=== PATIENT | female | born 1975 | race African-American/Black ===

== ENCOUNTER 2019-03-30 08:55 | Inpatient (IN) ==
[2019-03-30] MEDS ORDERED: CATAPRES PO ONE ×2 (09:11→10:24)
--- NOTE | 2019-03-30 09:17 | PROVIDER DOCUMENTATION ---
HPI-Neurological Disorder - General Chief Complaint: B/P Problems Stated Complaint: HAND NUMBNESS Time Seen by Provider: 03/30/19 09:06 Source: patient Allergies/Adverse Reactions: Patient Allergies Allergy/AdvReac Type Severity Reaction Status Date / Time acetaminophen [From Tylenol] Allergy RASH Verified 03/30/19 09:30 Home Medications: Home Medication List Medication Instructions Recorded Confirmed Last Taken Type Amlodipine [Norvasc] 5 mg PO DAILY #30 tab 02/05/18 03/30/19 Unknown Rx Losartan [Cozaar] 25 mg PO DAILY 03/30/19 03/30/19 Unknown History - History of Present Illness-Neuro Nature of Presenting Problem: 43 YOF WITH PMH OF HTN, CVA PRESENTS WITH 3 DAYS OF L HAND NUMBNESS. SHE REPORTS NO RESIDUAL FROM PREVIOUS CVA AND THAT SYMPTOMS BEGAN ABRUPTLY 3 DAYS AGO. SHE IS HYPERTENSIVE ON ARRIVAL, REPORTS SHE TAKES BP MEDICATIONS ORDERED. REPORTS HEADACHE 3 DAYS AGO BUT NONE CURRENTLY. REPORTS SHE WAS UNABLE TO DO HER JOB TODAY BECAUSE SHE IS LEFT HANDED AND THAT PROMPTED HER TO COME TO ER. SHE DENIES CP, SOB, N/V/D, FEVER, CHILLS. HER SPEECH IS SLURRED BUT SHE REPORTS THIS IS NORMAL SPEECH FOR HER Headache Location: denies: frontal, temporal, occipital, parietal, global, other Severity: reports: moderate Onset/Duration: reports: 3 days ago Timing: reports: still present Context: reports: paresthesia (L HAND NUMBNESS) Character of Altered Mental Status: reports: N/A Any recent trauma/injury?: reports: none Character of Deficits: reports: altered sensation (L HAND NUMBNESS) New weakness or altered sensation location:: reports: LUE Cognitive Baseline: alert, oriented x3 Gait Baseline: walks without assistance Associated Symptoms: reports: paresthesia (L HAND NUMBNESS) Similar Symptoms Previously?: Yes Recently seen or treated by another doctor?: No Review of Systems - Adult - REVIEW OF SYSTEMS - ADULT Constitutional: reports: no symptoms reported. denies: see HPI, chills, fever, fatique, night sweats, weight gain, weight loss, other Eyes: reports: no symptoms reported. denies: see HPI, discharge, dry eyes, decreased vision, blurred vision, double vision, eye pain, redness, other Ears, Nose, Mouth & Throat: reports: no symptoms reported. denies: see HPI, ear discharge, ear pain, hearing loss, tinnitus, epistaxis, sinus problem, nose pain, loose teeth, mouth/dental pain, mouth swelling, hoarseness, throat pain, throat swelling, other Cardiovascular: reports: no symptoms reported. denies: see HPI, chest pain, edema, heart murmur, irregular heart rate, orthopnea, palpitations, poor circulation, PND, syncope, other Respiratory: reports: no symptoms reported. denies: see HPI, chronic cough, cough, dyspnea on exertion, excessive sputum production, hemoptysis, pleurisy, shortness of breath, wheezing, other Gastrointestinal: reports: no symptoms reported. denies: see HPI, abdominal pain, hematemesis, constipation, diarrhea, difficulty swallowing, frequent heartburn, nausea, poor appetite, rectal bleeding, vomiting, other Genitourinary: reports: no symptoms reported. denies: see HPI, dysuria, discharge, frequency, flank pain, frequent UTI's, hematuria, hesitency, incontinence, urinary retention, urgency, other Musculoskeletal: reports: no symptoms reported. denies: see HPI, bone pain, back pain, frequent leg cramps, joint pain, joint swelling, muscle aches, muscle weakness, neck pain, other Integumentary: reports: no symptoms reported. denies: see HPI, hives, hair loss, itching, mole changes, nail changes, rash, skin sores/ulcer, skin thickening, other Neurological: reports: see HPI, numbness (L HAND). denies: no symptoms reported, ataxia, dizziness/vertigo, headache/migraines, loss of balance, pare sthesia, seizure, slurred speech, syncope, tremors, other Psychiatric: reports: no symptoms reported. denies: see HPI, anxiety, anti- depressant use, alcohol/drug dependence, depression, emotional problems, insomnia, panic attacks, suicidal thoughts, other Endocrine: reports: no symptoms reported. denies: see HPI, change in skin pigment, excessive sweating, goiter, cold intolerance, heat intolerance, increased hunger, increased thirst, polyuria, other Hematologic/Lymphatic: reports: no symptoms reported. denies: see HPI, blood clots, easy bruising, low blood count, lymphedema, prolonged bleeding, swollen lymph nodes, transfusions, other Allergic/Immunologic: reports: no symptoms reported. denies: see HPI, allergic reactions, allergic rhinitis, asthma, eczema, food allergy, frequent infections, hay fever, hives, positive PPD, urticaria, other Past History - Adult - PAST MEDICAL HISTORY-ADULT Review of Records: reports: Nursing Assessment Review, Social history reviewed & non-contributory. Major Childhood Illnesses: reports: denies history Cardiovascular: reports: HTN Respiratory: reports: denies history Gastrointestinal: reports: denies history Obstetrical/Gynecological: reports: denies history Genitourinary: reports: denies history Musculoskeletal: reports: denies history Neurological: reports: CVA Endocrine/Immune: reports: denies history Other Conditions: reports: denies history - PRIOR SURGERIES/PROCEDURES Surgical/Procedure History: reports: reviewed, not pertinent - IMMUNIZATION STATUS Childhood Immunizations: See Nurse Assessment Flu Vaccine: See Nurse Assessment - FAMILY HISTORY Family History: reviewed, not pertinent Physical Exam- Neurological - Physical Exam-Neuro Initial Vital Signs Reviewed: Yes General Appearance: appears well, alert, no apparent distress Eye Exam: bilateral eye: normal inspection, PERRL, EOMI HENMT: normocephalic/atraumatic, moist mucous membranes, normal ENT inspection Head Injury: no evidence of injury Neck: non-tender, full range of motion, supple Respiratory: chest non-tender, lungs clear, normal breath sounds, no pleuratic chest pain, no respiratory distress, no accessory muscle use Cardiovascular: normal peripheral pulses, regular rate, rhythm, no edema, no gallop, no JVD, no murmur Abdominal Exam: normal bowel sounds, non tender, soft, no organomegaly, no pulsatile mass Lymphatic: no adenopathy Peripheral Pulses: radial (R): 2+, radial (L): 2+ Extremity: normal range of motion, non-tender, 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 negative: facial asymmetry, facial droop, facial paresthesias, facial weakness, hearing deficit (R), hearing deficit (L), tongue deviation to R, tongue deviation to L Coordination/Gait: normal finger to nose, normal gait Motor/Sensory: negative: pronator drift (R), pronator drift (L), weak motor strength RUE, weak motor strength LUE, weak motor strength RLE, weak motor strength LLE Neurologic: no motor/sensory deficits. negative: aphasia, focal weakness, motor weakness Integumentary: normal color, normal turgor, warm/dry Psych/Mental Status: normal mood/affect, oriented x 3 - Glascow Coma Scale Best Eye Response: (4) open spontaneously Best Verbal Response: (5) oriented Best Motor Response: (6) obeys commands Progress - PLAN OF CARE/RESULTS Progress/Plan/Lab Results: Vital Signs - 8 hr 03/30/19 08:57 03/30/19 10:20 Temperature 98 F 98 F Pulse Rate 78 66 Respiratory Rate 18 20 Blood Pressure 190/126 169/112 O2 Sat by Pulse Oximetry 98 99 Bedside Urine ED: Urine Bedside Start: 03/30/19 09:11 Freq: ORDERED Status: Active Protocol: Activity Type Activity Date Activity User E-Sign Co-Sign Detail Recorded Client Recorded Date Recorded By Document 03/30/19 09:50 [id number] 03/30/19 09:50 [id number] 03/30/19 09:50 Point of Care [Bedside Point of Care] -Lot # [id number] - Results Negative -Control Line Visible? Yes Laboratory Results - last 24 hr 03/30/19 03/30/19 03/30/19 09:25 09:25 09:25 WBC 7.44 RBC 4.91 Hgb 10.4 L Hct 31.8 L MCV 64.8 L MCH 21.2 L MCHC 32.7 L RDW Std Deviation 17.9 H Plt Count 500 H MPV 11.0 H Immature Gran % (Auto) 0.3 Neut % (Auto) 66.2 Lymph % (Auto) 23.1 [place] % (Auto) 9.0 Eos % (Auto) 1.1 Baso % (Auto) 0.3 Immature Gran # (Auto) 0.02 Neut # (Auto) 4.93 Lymph # (Auto) 1.72 [place] # (Auto) 0.67 H Eos # (Auto) 0.08 Baso # (Auto) 0.02 PT 12.5 INR 0.89 PTT (Actin FS) 30.5 Sodium 140 Potassium 4.1 Chloride 104 Carbon Dioxide 24 L Anion Gap 12 BUN 17 Creatinine 1.2 H Estimated GFR/1.73 m2 49 BUN/Creatinine Ratio 14 Glucose 91 Calculated Osmolality 281 Calcium 9.6 Total Bilirubin 1.00 AST 18 ALT 13 Alkaline Phosphatase 92 Troponin T Total Protein 7.7 Albumin 4.3 Globulin 3.0 Albumin/Globulin Ratio 1.0 Urine Source Urine Color Urine Clarity Urine pH Ur Specific [place] Urine Protein Urine Ketones Urine Blood Urine Nitrite Urine Bilirubin Urine Urobilinogen Urine Microscopic RBC Urine WBC Urine Microscopic WBC Ur Epithelial Cells Urine Crystals Urine Bacteria Urine Casts Urine Yeast Urine Glucose Urine Opiates Screen Ur Oxycodone Screen Urine Methadone Screen U Propoxyphene Qual Ur Barbituates Screen Ur Tricyclics Screen Ur Phencyclidine Scrn Ur Amphetamines Screen U Methamphetamines Scrn U Benzodiazepines Scrn Urine Cocaine Screen U Cannabinoids Screen 03/30/19 03/30/19 03/30/19 09:26 09:43 09:43 WBC RBC Hgb Hct MCV MCH MCHC RDW Std Deviation Plt Count MPV Immature Gran % (Auto) Neut % (Auto) Lymph % (Auto) [place] % (Auto) Eos % (Auto) Baso % (Auto) Immature Gran # (Auto) Neut # (Auto) Lymph # (Auto) [place] # (Auto) Eos # (Auto) Baso # (Auto) PT INR PTT (Actin FS) Sodium Potassium Chloride Carbon Dioxide Anion Gap BUN Creatinine Estimated GFR/1.73 m2 BUN/Creatinine Ratio Glucose Calculated Osmolality Calcium Total Bilirubin AST ALT Alkaline Phosphatase Troponin T < 0.010 Total Protein Albumin Globulin Albumin/Globulin Ratio Urine Source CLEAN CATCH Urine Color YELLOW Urine Clarity SL. CLOUDY A Urine pH 5.0 Ur Specific [place] 1.025 Urine Protein 3+(500 mg/dL) A Urine Ketones TRACE Urine Blood 2+ A Urine Nitrite NEGATIVE Urine Bilirubin NEGATIVE Urine Urobilinogen 4 Urine Microscopic RBC 10-20 A Urine WBC TRACE A Urine Microscopic WBC 10-20 A Ur Epithelial Cells >10 A Urine Crystals CA OXALATE PRESENT Urine Bacteria 3+ Urine Casts NONE SEEN Urine Yeast NONE SEEN Urine Glucose NEGATIVE Urine Opiates Screen NONE DETECTED Ur Oxycodone Screen NONE DETECTED Urine Methadone Screen NONE DETECTED U Propoxyphene Qual NONE DETECTED Ur Barbituates Screen NONE DETECTED Ur Tricyclics Screen NONE DETECTED Ur Phencyclidine Scrn NONE DETECTED Ur Amphetamines Screen NONE DETECTED U Methamphetamines Scrn NONE DETECTED U Benzodiazepines Scrn NONE DETECTED Urine Cocaine Screen NONE DETECTED U Cannabinoids Screen NONE DETECTED Orders Category Date Time Status ED: Urine Bedside ORDERED Care 03/30/19 09:11 Active FSBS [Finger Stick Blood Sugar (ED)] DIRECTED Care 03/30/19 09:[address] HEAD/C-SPINE W/O CONTRAST [CT] Stat Exams 03/30/19 09:10 Completed CBC WITH ELECTRONIC DIFF [HEME] Stat Lab 03/30/19 09:25 Completed COMPREHENSIVE METABOLIC PANEL [CHEM] Stat Lab 03/30/19 09:25 Completed PROTIME WITH INR [COAG] Stat Lab 03/30/19 09:25 Completed PTT [COAG] Stat Lab 03/30/19 09:25 Completed TROPONIN T Stat Lab 03/30/19 09:26 Completed URINE CULTURE [RM] Routine Lab 03/30/19 10:19 [address]UG SCREEN [address] Stat Lab 03/30/19 09:43 Completed ua [URINALYSIS PL W/POSS RFLX CULT] [URINALYSIS] Stat Lab 03/30/19 09:43 Completed Clonidine [Catapres] Med 03/30/19 09:11 Discontinued 0.1 mg PO NOW ONE Clonidine [Catapres] Med 03/30/19 10:24 Discontinued 0.1 mg PO NOW ONE EKG [EKG] Stat Ther 03/30/19 09:11 Draft Result Diagrams: 03/30/19 09:25 03/30/19 09:25 - EKG 1 Time of EKG reading by physician:: 09:39 EKG Read and Signed by:: Shobha Dunne EKG Interpretation (*Must complete 3 of following elements*): Abnormal Rate: 63 Rhythm: SR WITH OCC PVC [place]: normal QRS: LVH TX Interval: normal ST Wave: non-specific ST changes Prior EKG Comparison: changes noted (PVC) - CT/MRI 1 CT Study: Cervical Spine, Head Impression: See EMR Report (EXAM : CT HEAD/C-SPINE W/O CONTRAST HISTORY: L HAND NUMBNESS, HX OF CVA TECHNIQUE: 1. CT head without contrast 2. CT cervical spine without contrast COMPARISON: Head compared to 05/16/2018 FINDINGS: Head: No parenchymal hemorrhage. No epidural or subdural hematoma. No subarachnoid hemorrhage. Small old infarct in the right basal ganglia on the current exam which was not previously present. Old right frontoparietal infarct which was not previously present. Small cyst or focal atrophy anteriorly in the right temporal lobe. This is unchanged. No hydrocephalus. No skull fracture. Cervical spine: Mild reversal of the normal curvature. No precervical soft tissue swelling. No subluxation. No fracture. 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 This is a normal variant. IMPRESSION: Head: No hemorrhage. No injury. Cervical spine: No acute fracture. This exam was performed using automated exposure control, adjustment of mA or kV according to patient size, and/or use of iterative reconstruction technique. Electronically signed by Rodger Bates 03/30/2019 10:13 AM 03/30/19 1013 Interpreting Physician: Rodger Bates MD Dictated Date/Time: 03/30/19 1007 cc: Perla Hardy; Perri Rodriguez) Comparison with other Films: changes noted - CONSULTS/PCP/HOSPITALIST Notification #1 *Consult/PCP/Hospitalist*: DR DAMICO Time Discussed: 10:46 Consult Disposition: Admit Departure - Departure Date of Disposition Decision: 03/30/19 Time of Disposition Decision: 10:46 DIAGNOSIS: Numbness of left hand, CVA (cerebral vascular accident) Disposition: HOME 01 Certified Medical Emergency: Emergent Condition: Stable Referrals and Follow-Ups: Perri Rodriguez [Primary Care Provider] - - Critical Care Note This patient required my direct & personal management of CC.: No Attestation - Physician/ DAVIDSON Attestation Patient care was provided by Advanced Practice Provider:: Yes Advanced Practice Provider:: Perla Hardy Advanced Practice Provider documentation review:: The Mid-level provider documentation, treatment plan and medical decision making was reviewed by the physician who agrees with all treatment and medical decision making by the P. The physician spent face to face time with patient:: No Advanced Practice Provider documentation review:: Supervising physician onsite and consulted in the evaluation and care of this patient. The physician did not have a face to face encounter with the patient. - NIH Stroke Scale NIH Type: Initial Evaluation Level of Consciousness: 0-Alert LOC Questions (ask month and age): 0-Answers Both Correctly LOC Commands (ask to open & close eyes;make a fist, let go): 0-Obeys Both Correctly Best Gaze (horizontal eye movement): 0-Normal Visual (use finger movement, counting or visual threat): 0-No Visual Loss Facial Palsy (show teeth or raise eyebrows & close eyes tght: 0-Symmetrical Movement Motor Function-left arm: 1-Drift Motor Function-right arm: 0-Normal Motor Function-left le-Normal Motor Function-right le-Normal Limb Ataxia(ajsenl-biqb-fqkbks, or heel to horta): 0-No Ataxia Sensory(pin prick to face,arms,trunk,legs-compare side/side): 0-No Ataxia Best Language(name item/read sentence.Ex-Down to Earth): 0-No Aphasia Dysarthria(Pt read words or say words Ex.Mama,Tip-Top,Thanks: 0-Normal Articulation Extinction and Inattention: 0-Normal NIH Total Score: 1 Stroke tPA Guidelines - Inclusion Criteria for IV tPA 18 years old or older: Yes Ischemic stroke with measurable deficit: No Onset <3 hours ago *OR* 3-4.5 hours ago: No
[2019-03-30 09:53] LABS: BASO# 0.02 X1000 (0.0-0.2); BASO% 0.3 % (0.0-0.8); EOS# 0.08 X1000 (0.0-0.7); EOS% 1.1 % (0.0-10.0); HEMATOCRIT 31.8 % (37.0-47.0); HEMOGLOBIN 10.4 g/dL (12.0-16.0); IMM GRAN# 0.02 X1000 (0.0-0.04); IMM GRAN% 0.3 % (0.0-0.5); LYMPH# 1.72 X1000 (1.2-3.4); LYMPH% 23.1 % (20.5-51.1); MCH 21.2 PG (27-31); MCHC 32.7 g/dL (33-37); MCV 64.8 FL (81-99); MONO# 0.67 X1000 (0.11-0.59); NEUT# 4.93 X1000 (1.4-6.5); NEUT% 66.2 % (42.2-75.2); PLT 500 X1000 (130-400); RBC 4.91 XMIL (4.2-5.4); RDW 17.9 % (11.5-14.5); WBC 7.44 X1000 (4.8-10.8)
[2019-03-30 10:00] LABS: INR 0.89; PROTIME 12.5 Seconds (11.0-16.0)
[2019-03-30 10:01] LABS: PTT 30.5 Seconds (22.3-41.8)
[2019-03-30 10:04] LABS: ALBUMIN 4.3 g/dL (3.5-5.0); CALCIUM 9.6 mg/dL (8.8-10.2); CREATININE 1.2 mg/dL (0.5-0.9); POTASSIUM 4.1 mmol/L (3.5-5.1); TOTAL PROTEIN 7.7 g/dL (6.3-8.3)
[2019-03-30 10:15] LABS: BILIRUBIN URINE NEGATIVE (NEGATIVE); BLOOD URINE 2+ (NEGATIVE); CLARITY SL. CLOUDY (CLEAR); COLOR YELLOW; GLUCOSE URINE NEGATIVE (NEGATIVE); KETONE URINE TRACE mg/dL (NEGATIVE); LEUKOCYTES URINE TRACE (NEGATIVE); NITRITE URINE NEGATIVE (NEGATIVE); SP GRAVITY URINE 1.025; UROBILINOGEN URINE 4 mg/dL
--- NOTE | 2019-03-30 10:15 | Diag Imaging Result Doc PS360 ---
EXAM : CT HEAD/C-SPINE W/O CONTRAST HISTORY: L HAND NUMBNESS, HX OF CVA TECHNIQUE: 1. CT head without contrast 2. CT cervical spine without contrast COMPARISON: Head compared to 05/16/2018 FINDINGS: Head: No parenchymal hemorrhage. No epidural or subdural hematoma. No subarachnoid hemorrhage. Small old infarct in the right basal ganglia on the current exam which was not previously present. Old right frontoparietal infarct which was not previously present. Small cyst or focal atrophy anteriorly in the right temporal lobe. This is unchanged. No hydrocephalus. No skull fracture. Cervical spine: Mild reversal of the normal curvature. No precervical soft tissue swelling. No subluxation. No fracture. 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 This is a normal variant. IMPRESSION: Head: No hemorrhage. No injury. Cervical spine: No acute fracture. This exam was performed using automated exposure control, adjustment of mA or kV according to patient size, and/or use of iterative reconstruction technique. Electronically signed by Rodger Bates 03/30/2019 10:13 AM
[2019-03-30 10:19] LABS: URINE BACTERIA 3+ /HFP; URINE CAST NONE SEEN /LPF; URINE CRYSTAL CA OXALATE PRESENT /HPF; URINE EPITHELIAL CELLS >10 /HPF (<10); URINE SOURCE CLEAN CATCH; URINE YEAST NONE SEEN /HPF
[2019-03-30 10:25] LABS: UR AMPHETAMINES QUAL NONE DETECTED (NONE DETECT); UR BARBITUATES QUAL NONE DETECTED (NONE DETECT); UR BENZODIAZEPIN QUAL NONE DETECTED (NONE DETECT); UR CANNABINOIDS QUAL NONE DETECTED (NONE DETECT); UR COCAINE QUAL NONE DETECTED (NONE DETECT); UR METHADONE QUAL NONE DETECTED (NONE DETECT); UR METHAMPHETAMINE QUAL NONE DETECTED (NONE DETECT); UR OPIATES QUAL NONE DETECTED (NONE DETECT); UR OXYCODONE QUAL NONE DETECTED (NONE DETECT); UR PCP QUAL NONE DETECTED (NONE DETECT); UR PROPOXYPHENE QUAL NONE DETECTED (NONE DETECT); UR TCA QUAL NONE DETECTED (NONE DETECT)
--- NOTE | 2019-03-30 10:40 | EKG Report ---
Test Performed on : 03/30/2019 09:38:46 AM Test Reason : L HAND NUMBNESS Blood Pressure : / mmHG Vent. Rate : 063 BPM Atrial Rate : 063 BPM P-R Int : 144 ms QRS Dur : 082 ms QT Int : 406 ms P-R-T Axes : 022 006 004 degrees QTc Int : 415 ms Sinus rhythm. with occasional premature ventricular complexes. Moderate voltage criteria for LVH, may be normal variant Nonspecific T wave abnormality Abnormal ECG When compared with ECG of 16-MAY-2018 13:22, premature ventricular complexes. are now present Unconfirmed Result
[2019-03-30] MEDS ORDERED: APRESOLINE IV ONE (10:54)
--- NOTE | 2019-03-30 11:41 | HISTORY AND PHYSICAL ---
PRIMARY CARE PHYSICIAN: Dr. Perri Rodriguez. CHIEF COMPLAINT: Arm and hand numbness, tingling, and weakness to the left arm for approximately 3 days that has progressively worsened. Also noted to have a headache for the past 3 days, and an elevated blood pressure. HISTORY OF PRESENTING ILLNESS: This is a 43-year-old female who presents to [facility] ER with complaints of left hand numbness, tingling, and weakness for the past 3 days that progressively worsened. States she has also had a headache for the past 3 days, and was having difficulty doing her job due to the left arm weakness and numbness. States she has had a CVA in the past, but did not have any residual affects. Did note some mild slurred speech that was residual from her previous CVA. When she arrived to the emergency room, she was noted to have a blood pressure of 190/126. Her CT of the head showed no hemorrhage, no injury. Cervical spine showed no acute fracture. She does state that she has been taking her medications as prescribed. She will be admitted for further evaluation and treatment. PAST MEDICAL HISTORY: CVA and hypertension. PAST SURGICAL HISTORY: None. FAMILY HISTORY: Reviewed and noncontributory. SOCIAL HISTORY: She currently lives with family. Denies any tobacco, alcohol, or illicit drug use. ALLERGIES: Acetaminophen. MEDICATIONS: Home medications will be held at this time, but she takes Norvasc 5 mg p.o. daily and Cozaar 25 mg p.o. daily. IMAGING AND LABORATORY DATA: Laboratory data showed a white blood cell count of 7.44, hemoglobin 10.4, hematocrit 31.8, platelets 500,000. PT/INR of 12.5 and 0.89. Sodium 140, potassium 4.1, chloride 104, CO2 of 24, BUN of 17, creatinine 1.2, which appears to be around her baseline, glucose 91. Troponin was negative. Urinalysis showed negative nitrites, trace white blood cells, 3+ bacteria. Urine drug screen showed none detected. CT of the head showed no hemorrhage, no injury. CT of cervical spine showed no acute fracture. EKG showed sinus rhythm with occasional PVCs at 63. REVIEW OF SYSTEMS: She denied any fever, chills, blurred vision, dizziness. She was positive for a headache. Denied any chest pain, coughing, shortness of breath, abdominal pain, constipation, diarrhea, burning or hurting with urination. She also has left hand and arm numbness, tingling, and weakness. PHYSICAL EXAMINATION: VITAL SIGNS: On arrival, she had a temperature of 98 degrees, pulse 78, respirations 18, blood pressure 190/126, saturating 98% on room air. GENERAL: This is a 43-year-old female who is sitting up in the bed and answers questions appropriately. HEENT: Normocephalic, atraumatic. Normal ENT inspection. Oropharynx and nares are clear. Eyes: Pupils are equal, round, and reactive to light and accommodation. Extraocular movements are intact. NECK: Normal inspection. Normal range of motion. LUNGS: Clear to auscultation bilaterally with equal lung expansion and chest wall movement. HEART: Regular rate and rhythm. No murmurs, rubs, or gallops. ABDOMEN: Soft, nontender, nondistended. Bowel sounds are present x4 quadrants. MUSCULOSKELETAL: She had 5/5 strength x4 extremities. NEUROLOGICAL: Cranial nerves II through XII are grossly intact. No deficits noted at this time. ASSESSMENT: 1. Transient ischemic attack versus cerebrovascular accident. 2. Accelerated hypertension, possibly secondary to noncompliance versus a transient ischemic attack versus cerebrovascular accident. PLAN: She will be admitted to the medical unit, placed on telemetry, healthy heart diet. We will check an MRI of the brain with and without contrast today. Check an echocardiogram and carotid ultrasound. Give her aspirin 325 mg p.o. now and daily. We are going to allow her to ride a little high with her blood pressure with permissive hypertension until we completely rule out that this is not a stroke. If this does not show up on her MRI, then we will treat the hypertension a little more aggressively at that time. We will check lipid panel, CBC, BMP in the a.m. Further orders after seen by attending. Dictated by JEFFERY Hallman for Kadeem Galvin MD cc: JEFFERY Hallman MD Faye Wilson, MD
[2019-03-30] MEDS ORDERED: ZOFRAN IV PRN (13:47)
[2019-03-30] MEDS ORDERED: TYLENOL PO PRN (13:47)
[2019-03-30] MEDS ORDERED: NS 1,000 ML IV ONE (13:47)
--- NOTE | 2019-03-30 13:49 | Diag Imaging Result Doc PS360 ---
EXAM: MRI BRAIN W/WO CONTRAST HISTORY: cva TECHNIQUE: MRI brain with and without intravenous contrast. Axial, sagittal, and coronal images obtained in multiple sequences. These are followed by post contrasted axial and coronal images. COMPARISON: None. FINDINGS: There is a tiny amount of gyral enhancement in the right parietal lobe and frontoparietal region. There is an additional small area of enhancement in the right caudate. No distinct mass. No midline shift. No hydrocephalus. No epidural or subdural fluid collection. Normal orbits. No sinus opacification. IMPRESSION: Tiny areas of enhancement on the right believed to represent luxury perfusion from small infarcts. Short-term follow-up recommended. Electronically signed by Rodger Bates 03/30/2019 1:46 PM
[2019-03-30] MEDS ORDERED: FLU VACCINE IM ONE (14:54)
--- NOTE | 2019-03-30 16:35 | Vascular Study Report ---
EXAM: Carotid Ultrasound HISTORY: tia TECHNIQUE: Carotid ultrasound COMPARISON: None. FINDINGS: Normal flow in the common carotid artery. No occlusion or stenosis. Minimal intimal thickening. The peak systolic velocity in the internal carotid arteries 115 cm/s. No occlusion or stenosis in the internal carotid artery. The ICA/CCA ratio is 1.2. Antegrade vertebral flow. Left: There is normal flow in the common carotid artery. No occlusion or stenosis. The peak systolic velocity in the internal carotid artery is 84 cm/s. No occlusion or stenosis. Antegrade vertebral flow. The ICA/CCA ratio 0.9. IMPRESSION: No occlusion or stenosis within either common carotid artery or within either internal carotid artery Electronically signed by Rodger Bates 03/30/2019 4:32 PM
[2019-03-30] MEDS: ASPIRIN PO SCH (17:41)
--- NOTE | 2019-03-30 21:52 | HISTORY AND PHYSICAL ---
ADDENDUM: The patient came in with weakness and numbness of her left arm. She has a history of CVA. Her exam reveals left lower extremity and left upper extremity weakness, as well as some dysarthria. The patient will be observed, get MRI, carotid echo. We will escalate her aspirin therapy to aspirin and Plavix and further workup pending imaging studies and positive result from her other study. cc: Kadeem Galvin MD
[2019-03-31 07:06] LABS: BASO# 0.02 X1000 (0.0-0.2); BASO% 0.3 % (0.0-0.8); EOS# 0.14 X1000 (0.0-0.7); EOS% 2.1 % (0.0-10.0); HEMATOCRIT 28.5 % (37.0-47.0); HEMOGLOBIN 9.1 g/dL (12.0-16.0); IMM GRAN# 0.01 X1000 (0.0-0.04); IMM GRAN% 0.1 % (0.0-0.5); LYMPH# 2.31 X1000 (1.2-3.4); LYMPH% 34.3 % (20.5-51.1); MCH 20.7 PG (27-31); MCHC 31.9 g/dL (33-37); MCV 64.8 FL (81-99); MONO# 0.68 X1000 (0.11-0.59); MONO% 10.1 % (1.7-9.3); MPV 11.3 FL (7.4-10.4); NEUT# 3.57 X1000 (1.4-6.5); NEUT% 53.1 % (42.2-75.2); PLT 388 X1000 (130-400); RDW 17.5 % (11.5-14.5); WBC 6.73 X1000 (4.8-10.8)
[2019-03-31 07:17] LABS: AGAP 10; BUN 16 mg/dL (8-22); CHLORIDE 108 mmol/L (98-107); COSMO 284; ESTIMATED GFR > 60; GLUCOSE 85 mg/dL (70-104); POTASSIUM 4.2 mmol/L (3.5-5.1); SODIUM 142 mmol/L (136-145); TCO2 24 mmol/L (25-35)
[2019-03-31 07:53] LABS: EOS 1 % (1-10); LYMPHS 24 % (21-51); MONO 4 % (1-9); SEGS 71 % (42-75)
[2019-03-31 07:54] LABS: ANISOCYTOSIS 1+
[2019-03-31] MEDS: ASPIRIN PO SCH (08:37)
[2019-03-31 09:16] LABS: CHOLESTEROL 105 mg/dL (0-200); HDL 54 mg/dL (45-65); TRIGLYCERIDES 56 mg/dL (35-135)
[2019-03-31 09:17] LABS: LDL 40 mg/dL; VLDL 11 mg/dL
[2019-03-31 11:54] LABS: IRON SATURATION 8 %; TIBC 293 ug/dL; TOTAL IRON 24 ug/dL (49-151); UNBOUND IRON 269 ug/dL (112-346)
[2019-03-31] MEDS: NS 1,000 ML IV SCH ×2 (13:07→23:09)
--- NOTE | 2019-03-31 14:01 | ECHO REPORT ---
ORDER DATE: 03/30/2019 INTERPRETING PHYSICIAN: Dr. Cheko Guzman ECHOCARDIOGRAPHIC MEASUREMENTS: 1. Interventricular septum: 1.2 cm. 2. Posterior wall: 1.2 cm. 3. Diastolic diameter: 5.2 cm. 4. Left atrium: 3.8 cm. 5. Aortic root: 3.0 cm. SUMMARY OF THE 2-DIMENSIONAL IMAGIN. Pulmonic valve was normal. 2. Mitral valve was normal. 3. There is mild pulmonary regurgitation. 4. Technically suboptimal study. Poor acoustic window. 5. Aortic valve leaflets not well visualized. Appears to be trileaflet. 6. There is mild pulmonary regurgitation. 7. Normal left ventricular cavity size. Mild left ventricular hypertrophy. Estimated ejection fraction of 60%. 8. There is mild mitral regurgitation. 9. Mild tricuspid regurgitation. Peak velocity across the tricuspid valve less than 2 m/sec. 10. Peak velocity across the aortic valve less than 2 m/sec. By Doppler studies, there is no aortic stenosis or regurgitation. 11. There is no pericardial effusion or obvious intracardiac mass or thrombus seen. cc: MD Kadeem Greenberg MD
--- NOTE | 2019-03-31 15:42 | CONSULTATION ---
DATE OF CONSULTATION: 03/31/2019 HISTORY: Ms. Duncan is 43 years old and there is question of stroke. History from the patient is that she noted weakness in her dominant left arm about 3 days ago. She believes that persisted without significant improvement or deterioration until this morning when she noted it to be improved. She did not notice weakness in the left leg, gait difficulty, slurred speech, trouble chewing or swallowing, vision disturbance. She reports having a sense of numbness across both sides of her mouth, but no facial asymmetry or focal numbness. I believe she had reported headache earlier, but she told me now that there was not significant headache. She reports she is left handed and there was no language deficit with current symptoms. She reports prior stroke occurring 11 months ago with similar left-sided weakness which was more prominent then. She reports recovery over several weeks or months and she believes she did recover back to baseline. She was managed in [facility] then. She reports no brain imaging since hospital discharge 11 months ago until admission here. Workup here includes brain MRI showing right frontoparietal enhancement raising question of luxury perfusion. Carotid ultrasound is unremarkable. Lab showed chemistry unremarkable. Urine drug screen was all negative. She has been afebrile. Heart rate has been stable 60s-70s. Initial blood pressure was 190/126. Systolic blood pressures have been stable 120s-170s over the last 24 hours. There is past history of hypertension, possible dyslipidemia and apparent previous stroke as discussed above. She does not smoke cigarettes. She reports she was taking her medicines correctly and had not missed doses. This includes daily aspirin. PHYSICAL EXAMINATION: On exam now, Ms. Duncan is awake, alert, attentive. Speech is not dysarthric. Language function is intact. Memory is good. Head and neck are unremarkable. Visual morris are full. Extraocular movements are full. Facial motility is a little bit diminished over the left lower face. Gag is intact. Tongue is midline. She can hear. She has good power in the right limbs. I can overcome the left deltoid grading 4+/5, wrist extensor 4+/5. Tone is equal in the limbs. She did well on [id number] testing bilaterally. She did rapid alternating movements a little bit slower with the left hand than the right. She reports equal sensation on gross testing over the limbs. Proprioception is good at the great toe MTP joint bilaterally and at the second finger PIP joint bilaterally. I did not test her gait. Plantar response is silent bilaterally. IMPRESSION: Minimal left hemiparesis. Current MRI findings of possible luxury perfusion in the right hemisphere. I will see if there is report available from imaging done last year and we can try to compare to see what might be old and what might be new. By report, she has dominant right hemisphere. There was not dysphasia with current episode. She has made some recovery and deficit is minimal now. I encouraged her to be aggressive with management of her cerebrovascular risk factors. With the carotid report negative and her stable course with greater than 3-day history since onset, I think we can treat blood pressure aggressively. I would continue aspirin, treat blood pressure, treat lipids, encourage physical activity and weight loss, keep followup with primary physician, frequent screening for diabetes mellitus. I will be glad to see her as an outpatient, if needed. Thanks for asking Neurology to see Ms. Duncan. cc: MD KETTY Paredes IIID
--- NOTE | 2019-03-31 18:12 | PROGRESS NOTE ---
DATE: 03/30/2019 SUBJECTIVE: Patient has no major complaints. OBJECTIVE: Vital signs: Blood pressure is 165/120, heart rate of 68, respiratory rate 18, temperature 98.5 degrees. Cardiovascular: Regular rate and rhythm. Pulmonary: Bilateral breath sounds diminished at the bases. GI: Soft, nontender, nondistended. Bowel sounds are positive. Extremities: No clubbing or cyanosis. Lymphatic exam: No peripheral edema. Neurological: She has left-sided distal extremity weakness. She has left facial droop. She has tongue deviation. No ocular deviation. LABORATORY DATA: White count 6, hemoglobin and hematocrit 9 and 28, platelets 388,000 with microcytic indices with an MCV of 64. Creatinine is down to 1.0. LDL is 40. PROBLEM LIST: 1. Acute ischemic cerebrovascular accident. It looks like she has had a new CVA in a similar territory to where she had her previous CVA. Overall, she seems to be doing okay. No major complaints. She looks a little stronger than yesterday. We will continue aspirin. She reports that she was on aspirin, so we will add Plavix to her regimen versus Effient. Pursue CT angiogram. Her echocardiogram showed an EF 60%, no major pathology. Carotid was fairly negative. We will pursue a CT angiogram of her head. 2. Hypertension is stable. Continue to monitor. 3. Renal insufficiency. We will continue to monitor. Allow permissive hypertension. 4. Disposition. Pending her clinical status. Dr. Garcia has seen the patient. Appreciate his input. Not really quite sure what else to say. We are going to try to get MRI report previously, although I believe Radiology is able to access [place] records. We will monitor. I am not sure if she will need rehab. She is able to ambulate but we may be able to set up some physical therapy as an outpatient. We will continue to follow. cc: Kadeem Galvin MD
[2019-03-31] MEDS: PLAVIX PO SCH (19:47)
--- NOTE | 2019-03-31 20:42 | Diag Imaging Result Doc PS360 ---
CT ANGIOGRAM HEAD - 03/31/2019 INDICATION: cva TECHNIQUE: Axial CT images were obtained after administering intravenous contrast. Three-dimensional angiographic images were generated. COMPARISON: Head CT and brain MRI 03/30/2019 FINDINGS: There is multifocal significant calcified plaque buildup in the carotid siphons bilaterally. There is critical stenosis at both supraclinoid internal carotid arteries, that does not appear associated with any calcified plaque. There is over 95% stenosis of both of these arteries. There is critical stenosis of the proximal right middle and anterior cerebral arteries, after a period of normal caliber at the bifurcation. 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 The left middle cerebral artery is widely patent. Both vertebral arteries are patent and codominant. The basilar artery is normal and the cerebellar arteries appear normal. Both posterior cerebral arteries are patent. There is no aneurysm. 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 There is clearly an abnormal extensive calcified atherosclerotic plaque buildup, but the majority of the stenosis is due to indeterminate vascular narrowings. This is highly concerning for vasculitis in addition to atherosclerotic disease. This exam was performed using automated exposure control, adjustment of mA or kV according to patient size, and/or use of iterative reconstruction technique Electronically signed by Harshal Glover 03/31/2019 8:40 PM
[2019-04-01 06:42] LABS: BASO# 0.02 X1000 (0.0-0.2); BASO% 0.3 % (0.0-0.8); EOS% 1.7 % (0.0-10.0); HEMATOCRIT 29.7 % (37.0-47.0); HEMOGLOBIN 9.5 g/dL (12.0-16.0); IMM GRAN# 0.01 X1000 (0.0-0.04); IMM GRAN% 0.2 % (0.0-0.5); LYMPH# 1.58 X1000 (1.2-3.4); LYMPH% 27.1 % (20.5-51.1); MCH 20.7 PG (27-31); MCV 64.6 FL (81-99); MONO# 0.59 X1000 (0.11-0.59); MONO% 10.1 % (1.7-9.3); MPV 11.7 FL (7.4-10.4); NEUT# 3.52 X1000 (1.4-6.5); NEUT% 60.6 % (42.2-75.2); PLT 394 X1000 (130-400); RDW 17.4 % (11.5-14.5); WBC 5.82 X1000 (4.8-10.8)
[2019-04-01 06:46] LABS: AGAP 10; BUN 12 mg/dL (8-22); CHLORIDE 106 mmol/L (98-107); COSMO 277; CREATININE 0.9 mg/dL (0.5-0.9); ESTIMATED GFR > 60; GLUCOSE 85 mg/dL (70-104); POTASSIUM 3.9 mmol/L (3.5-5.1); SODIUM 139 mmol/L (136-145); TCO2 24 mmol/L (25-35)
[2019-04-01 08:26] LABS: EOS 2 % (1-10); LYMPHS 26 % (21-51); MONO 8 % (1-9); SEGS 64 % (42-75)
[2019-04-01] MEDS ORDERED: CATAPRES PO ONE (09:33)
[2019-04-01] MEDS: ASPIRIN EC PO SCH (09:54)
[2019-04-01] MEDS: ULTRAM PO PRN (09:54)
[2019-04-01] MEDS: PLAVIX PO SCH (09:54)
--- NOTE | 2019-04-01 11:52 | PROGRESS NOTE ---
DATE: 04/01/2019 SUBJECTIVE: Ms. Duncan reports a relatively moderate headache earlier this morning, which is much improved now with blood pressure controlled. She reports having occasional headaches in the past, mostly associated with elevated blood pressure. She confirmed again on history for me today that she did not have headache at the time of onset of left-sided symptoms several days ago. OBJECTIVE: On exam, she is awake, alert, attentive and appropriate. Speech is not significantly dysarthric. Language function is intact. Memory is good. She is oriented to all parameters. She was able to discuss recent news with accurate details. Visual morris are full. Neck is supple. IMPRESSION: CT angiogram report is noted. I do not find any clinical evidence to suggest central nervous system vasculitis. She has never been encephalopathic. She has not had significant headache. There was never altered consciousness or altered awareness. She has not had seizure. Recent neurologic symptoms were not multifocal. PLAN: I would continue treating blood pressure, continue treating risk factors aggressively, continue to follow clinically. As discussed with Dr. Galvin we might consider treating her with steroids and planning further workup for question of central nervous system vasculitis. I do not think we have capability of any further imaging studies here. Thanks for asking Neurology to see Ms. Duncan. cc: Chandrakant Garcia III, MD [facility]
[2019-04-01] MEDS: NORVASC PO SCH (12:15)
[2019-04-01] MEDS: SOLU-MEDROL IV SCH ×2 (12:16→22:33)
--- NOTE | 2019-04-01 14:31 | PROGRESS NOTE ---
DATE: 04/01/2019 SUBJECTIVE: The patient has no major complaints. This morning she did have an episode of weakness and numbness but mostly on her right side, right face, and a headache. OBJECTIVE: Vital Signs: Blood pressure is currently 149/100, heart rate 90, respiratory rate 14, temperature 98.3, 96% on room air. Cardiovascular: Regular rate and rhythm. Pulmonary: Bilateral breath sounds clear to auscultation. GI: Abdomen is soft, nontender, and nondistended. Bowel sounds are positive. LABORATORY DATA: White count is 5, hemoglobin and hematocrit 9 and 29, and platelets 394. Basic was normal. She is a bit iron deficient although consistent with chronic inflammation. PROBLEM LIST: 1. Acute ischemic cerebrovascular accident. At this point, CT or MRI is being overread that it may not be acute although she did have symptoms which are improving. She is on aspirin and Plavix. CT angiogram shows diffuse stenosis especially in the anterior circulation with concern over vasculitis. She is not encephalopathic though. Dr. Garcia has evaluated her and feels like we at least need to consider a high level of care for further evaluation because she may need an invasive cerebral arteriogram and possible rheumatological evaluation. We will try [facility] first and then the [facility]. 2. Hypertension. Stable currently. DISPOSITION: Pending her clinical status we have requested records from [facility] but they do not have records of her MRI. I have initiated steroids. She also needs to be put on high dose lipid medication. cc: Kadeem Galvin MD
[2019-04-01] MEDS: NS 1,000 ML IV SCH (17:49)
[2019-04-01] MEDS: LIPITOR PO SCH (22:33)
[2019-04-02] MEDS: SOLU-MEDROL IV SCH ×3 (03:42→20:27)
[2019-04-02] MEDS: NS 1,000 ML IV SCH ×3 (03:44→16:15)
[2019-04-02 06:36] LABS: EOS# 0.01 X1000 (0.0-0.7); EOS% 0.1 % (0.0-10.0); HEMATOCRIT 30.2 % (37.0-47.0); HEMOGLOBIN 9.8 g/dL (12.0-16.0); IMM GRAN# 0.03 X1000 (0.0-0.04); IMM GRAN% 0.3 % (0.0-0.5); LYMPH# 0.91 X1000 (1.2-3.4); LYMPH% 10.2 % (20.5-51.1); MCH 20.8 PG (27-31); MCHC 32.5 g/dL (33-37); MCV 64.1 FL (81-99); MONO# 0.06 X1000 (0.11-0.59); MONO% 0.7 % (1.7-9.3); MPV 11.2 FL (7.4-10.4); NEUT# 7.88 X1000 (1.4-6.5); NEUT% 88.7 % (42.2-75.2); PLT 450 X1000 (130-400); RBC 4.71 XMIL (4.2-5.4); RDW 17.6 % (11.5-14.5); WBC 8.89 X1000 (4.8-10.8)
[2019-04-02 06:45] LABS: AGAP 9; BUN 17 mg/dL (8-22); CALCIUM 9.1 mg/dL (8.8-10.2); CHLORIDE 106 mmol/L (98-107); COSMO 278; CREATININE 0.8 mg/dL (0.5-0.9); ESTIMATED GFR > 60; GLUCOSE 139 mg/dL (70-104); POTASSIUM 4.3 mmol/L (3.5-5.1); SODIUM 137 mmol/L (136-145); TCO2 22 mmol/L (25-35)
[2019-04-02] MEDS: ULTRAM PO PRN ×2 (07:19→18:39)
[2019-04-02] MEDS: PLAVIX PO SCH (08:20)
[2019-04-02] MEDS: ASPIRIN EC PO SCH (08:20)
[2019-04-02] MEDS: NORVASC PO SCH (08:20)
--- NOTE | 2019-04-02 09:14 | PROGRESS NOTE ---
DATE: 04/02/2019 SUBJECTIVE: The patient denies having any acute complaints, but continues to have weakness in the left upper extremity. She states that there has been some minimal improvement, but the weakness stays there. OBJECTIVE: Vital Signs: Temperature 97.8 degrees, pulse 82 per minute, respiratory rate 18 per minute, blood pressure 166/107, pulse oximetry 96% on room air. General: Patient is alert and oriented x3. She does not appear to be in any acute distress. Cardiovascular System: First and second heart sounds are audible without any murmurs or gallops. Respiratory System: Bilateral lung air entry is good without any rales or rhonchi. Gastrointestinal System: Patient is morbidly obese. Abdomen is soft and nontender. Normal bowel sounds are present. Neurologic: Left upper extremity motor weakness is present. She is able to raise her left upper extremity and can apply some pressure, but there is obvious motor weakness present. Rest of the extremities have normal motor function. DIAGNOSTIC DATA: CBC shows hemoglobin of 9.8 and hematocrit 30.2. Rest of the CBC is nondiagnostic. Her hemoglobin and hematocrit have remained stable as compared to the previous 48 hours. Basic metabolic panel is nondiagnostic. CT angiogram of the head done on 03/31/2019 showed multifocal severe and critical stenosis of the anterior circulation predominantly. There is clearly an abnormal extensive calcified atherosclerotic plaque buildup, but the majority of the stenosis is due to indeterminate vascular narrowing. This is highly concerning for vasculitis in addition to atherosclerotic disease. IMPRESSION: 1. Acute cerebrovascular accident with the possibility of vasculitis. 2. Hypertension. PLAN: The patient will continue with aspirin and clopidogrel, along with the atorvastatin. She will also continue to get methylprednisolone 60 mg IV q. 8 hours, along with IV fluids. Her blood pressure is being controlled with amlodipine 5 mg daily and also is getting clonidine as needed. We have attempted to transfer the patient to [facility] since we do not have any rheumatology support over here, but they have declined transfer and instead asked us to continue current care and then refer her to Rheumatology as outpatient. Further recommendations will be given as per hospital course. cc: Dominga Jolly MD
[2019-04-02 12:43] LABS: ANTINEUTROPHIL CYTOPLASMIC AB SEE COMMENTS
[2019-04-02] MEDS: LIPITOR PO SCH (20:28)
[2019-04-03] MEDS: NS 1,000 ML IV SCH ×4 (00:03→23:12)
[2019-04-03] MEDS: SOLU-MEDROL IV SCH ×3 (03:00→19:53)
[2019-04-03] MEDS: PLAVIX PO SCH (08:28)
[2019-04-03] MEDS: ASPIRIN EC PO SCH (08:29)
[2019-04-03] MEDS: ULTRAM PO PRN ×2 (08:29→19:54)
[2019-04-03] MEDS: NORVASC PO SCH (08:29)
[2019-04-03] MEDS ORDERED: NORVASC PO ONE (12:44)
--- NOTE | 2019-04-03 12:56 | PROGRESS NOTE ---
DATE: 04/03/2019 SUBJECTIVE: Patient denies having any acute complaints this morning. OBJECTIVE: Vital Signs: Temperature 98.3 degrees, pulse 75 per minute, respiratory rate 20 per minute, blood pressure 168/107. Earlier, her blood pressure was 169/93. Pulse oximetry shows 99% on room air. General: The patient is alert and oriented x3. The patient does not appear to be in any acute distress. Cardiovascular System: First and second heart sounds are audible without any murmurs or gallops. Respiratory System: No respiratory distress noted. Bilateral lung air entry is good without any rales or rhonchi. Gastrointestinal System: Abdomen is soft and nondistended. Normal bowel sounds are present. Neurologic: Left upper extremity motor weakness is present. That appears to be slightly improved as compared to yesterday. IMPRESSION: 1. Acute cerebrovascular accident with a possibility of vasculitis. 2. Hypertension. PLAN: The patient will be continued on aspirin and clopidogrel, along with atorvastatin. She will also continue with the IV systemic steroids, along with IV fluids. Blood pressure is currently being controlled with amlodipine 5 mg daily which will be bumped up to 10 mg daily and will also continue with clonidine on as needed basis. The patient's condition is slightly getting better and therefore, we are going to continue with current regimen. cc: Dominga Jolly MD
[2019-04-03] MEDS: LIPITOR PO SCH (20:00)
[2019-04-04] MEDS: SOLU-MEDROL IV SCH ×2 (02:56→12:18)
[2019-04-04 06:43] LABS: AGAP 7; BUN 18 mg/dL (8-22); CALCIUM 8.9 mg/dL (8.8-10.2); CHLORIDE 105 mmol/L (98-107); COSMO 276; CREATININE 0.9 mg/dL (0.5-0.9); ESTIMATED GFR > 60; GLUCOSE 140 mg/dL (70-104); POTASSIUM 4.1 mmol/L (3.5-5.1); SODIUM 136 mmol/L (136-145); TCO2 24 mmol/L (25-35)
[2019-04-04 06:49] LABS: EOS# 0.01 X1000 (0.0-0.7); EOS% 0.1 % (0.0-10.0); HEMATOCRIT 30.6 % (37.0-47.0); HEMOGLOBIN 9.9 g/dL (12.0-16.0); IMM GRAN# 0.04 X1000 (0.0-0.04); IMM GRAN% 0.3 % (0.0-0.5); LYMPH# 1.24 X1000 (1.2-3.4); LYMPH% 8.6 % (20.5-51.1); MCH 20.8 PG (27-31); MCHC 32.4 g/dL (33-37); MCV 64.2 FL (81-99); MONO# 0.23 X1000 (0.11-0.59); MONO% 1.6 % (1.7-9.3); MPV 11.4 FL (7.4-10.4); NEUT# 12.87 X1000 (1.4-6.5); NEUT% 89.4 % (42.2-75.2); PLT 482 X1000 (130-400); RBC 4.77 XMIL (4.2-5.4); RDW 17.7 % (11.5-14.5); WBC 14.39 X1000 (4.8-10.8)
[2019-04-04 08:05] LABS: ANISOCYTOSIS 1+; LYMPHS 10 % (21-51); MICROCYTOSIS 2+; MONO 2 % (1-9); SEGS 88 % (42-75)
[2019-04-04] MEDS: ASPIRIN EC PO SCH (08:46)
[2019-04-04] MEDS: PLAVIX PO SCH (08:46)
[2019-04-04] MEDS: ULTRAM PO PRN ×2 (08:46→14:36)
[2019-04-04] MEDS: NS 1,000 ML IV SCH ×2 (08:58→16:30)
[2019-04-04] MEDS ORDERED: NORVASC PO SCH (09:00)
[2019-04-04] MEDS ORDERED: COZAAR PO SCH (10:00)
[2019-04-04 15:32] VITALS: BP 174/101
--- NOTE | 2019-04-04 21:41 | DISCHARGE SUMMARY ---
ADMISSION DATE: 03/30/2019 DISCHARGE DATE: 04/04/2019 CONSULT: Dr. Chandrakant Garcia. 1. Acute cerebrovascular accident with possibility of vasculitis . 2. Hypertension. DIAGNOSTICS: 1. 03/30/2019 CT of the head and C-spine without contrast revealed no hemorrhage, no injury and C- spine no acute fracture. 2. MRI of the brain revealed tiny areas of enhancement on the right believed to represent luxury perfusion from small infarcts. 3. Bilateral carotid Doppler revealed no occlusion or stenosis within either common artery or within either internal carotid artery. 4. Echocardiogram revealed a normal left ventricular cavity size, mild left ventricular hypertrophy with an estimated ejection fraction of 60%. No pericardial effusion or obvious intracardiac mass or thrombus seen. 5. 03/31/2019 CTA of the head revealed multifocal severe and critical stenosis of the anterior circulation predominantly. There clearly is abnormal extensive calcified atherosclerotic plaque buildup but the majority of the stenosis is due to indeterminate vascular narrowings highly concerning for vasculitis in addition to atherosclerotic disease. HOSPITAL COURSE: Ms. Duncan presented to the emergency room complaining of left arm weakness and tingling that had been present for 3 days prior to presentation with a headache as well as hypertension. CT showed no hemorrhage or injury with followup MRI showing tiny areas of enhancement on the right believed to represent luxury perfusion from small infarcts. The patient has a history of prior CVA with no residual. She was allowed permissive hypertension initially then we restarted her Norvasc, Lipitor, Cozaar as well as her home aspirin. She was evaluated by Dr. Garcia. CTA of the brain did suggest vasculitis although Dr. Garcia in his progress note did not find any clinical evidence to suggest central nervous system vasculitis having never been encephalopathic nor having a significant headache. No altered consciousness or awareness with no seizure. She was started on steroids and is being discharged on steroids. Will continue with the taper over the next 16 days. She was evaluated by physical therapy has been doing well walking in the room as well as walking in the [place]. She feels that she is back to her normal and thankfully she is ready to discharge. DISCHARGE PHYSICAL EXAM: Vital signs: Blood pressure is 170/90 with a heart rate of 82, respirations are 16, temperature is 97.9 degrees oral with O2 saturations 98 to 100. Cardiovascular: Regular rate and rhythm. S1 and S2 appreciated. She has no lower extremity edema. Calves are nontender bilateral, peripheral pulses palpable x4 extremities. Pulmonary: Breath sounds are clear. No increased work of breathing noted. Chest rise falls symmetric respiration. Gastrointestinal: Soft, nontender, nondistended. Bowel sounds in all 4 quadrants. Neurologic: She is alert, oriented x3. DISCHARGE MEDICATIONS: 1. Norvasc 10 mg p.o. daily. 2. Aspirin 325 mg p.o. daily. 3. Lipitor 40 mg p.o. at bedtime. 4. Cozaar 25 mg p.o. daily. 5. Plavix 75 mg p.o. daily. 6. Prednisone taper 40 mg daily for 4 days, 30 mg daily for 4 days, 20 mg daily for 4 days, 10 mg daily for 4 days and discontinue. FOLLOWUP: Dr. Chandrakant Garcia. She needs to call to schedule an appointment to be seen in [address] Perri Rodriguez. She needs to call to schedule to be seen in 1 to 2 weeks. She has been instructed to call to be seen sooner or return to the emergency room for headache, any syncope, dizziness, any chest pain, palpitations, any shortness of breath, cough, temperature greater than 101 any chills, any nausea, vomiting, diarrhea, constipation, any black or bloody vomitus or stools, hematuria, dysuria, frequency, urgency, any weakness, any change in vision, change in gait, any change in speech, difficulty swallowing, hearing or for any questions or concerns she may have. She is being discharged home in stable condition with family members. TIME SPENT: Greater than 30 minutes. Dictated by JEFFERY Hutchins for Kadeem Galvin MD cc: JEFFERY Hutchins MD [facility]
--- NOTE | 2019-04-05 09:34 | DISCHARGE SUMMARY ---
ADMISSION DATE: 03/30/2019 DISCHARGE DATE: 04/04/2019 DISCHARGE DIAGNOSIS: Cerebrovascular accident. HISTORY: The patient is improving. She does have some left upper extremity weakness still and left pearl maker strength weakness. Overall, she has improved. She is still somewhat hypertensive, but she has had a recent CVA. Plan will be to discharge her. She will follow up with Neurology. She is on some steroids. We will continue steroids at least for a slow taper, and have her follow up with Neurology. I did attempt to get an appointment at [facility], but was not very successful to do it before June. We may just have Dr. Garcia see her shortly, and then she can follow-up in June after that. DISCHARGE CONDITION: Stable. TIME: 32 minute discharge [id number] encounter note. PRIMARY CARE PHYSICIAN: Perri Rodriguez MD cc: Kadeem Galvin MD
== END 2019-04-04 17:50 | disposition home or self-care (01) | DRG 65 ==
LOC: P.ED 08:55 → SUATTDRO 08:56 → P.MEDSURG 08:56
PROVIDERS: ATTEND Internal Medicine